=== PATIENT | female | born 1990 | race Hispanic/Latino ===

== ENCOUNTER → 2017-07-29 | Day surgery (SDC) | payer OTHER ==
[~2017-07-29] VITALS: Ht 157.5 cm; Wt 73.0 kg
--- NOTE | 2017-07-30 11:59 | Operative Report ---
Operative/Inv Procedure Report Surgery Date: 07/29/17 Name of Procedure: D&C hysteroscopy Pre-Operative Diagnosis: Fibroids Post-Operative Diagnosis: Same Estimated Blood Loss: scant Surgeon/[employer] Supervisor: Charlene Nava MD Anesthesia: moderate sedation Operative/Procedure Note Note: Patient was taken the operating room placed supine position after adequate anesthesia patient placed in dorsolithotomy position vagina from dorsal fashion examination anesthesia performed single-tooth tenaculum was placed on the Intralipid surgeons cervix was dilated 29 Hegar to left insertion hysteroscope hysteroscope was inserted under direct visualization I hysteroscope was removed sharp curettage endometrial lining was performed on sharp curettage and cervical lining was performed 2 specimen sent to pathology on sponge moved from the vagina the patient was awakened from anesthesia and transferred recovery room awake alert with counts correct
== END ==
LOC: STS 01:21
DX: D25.9 Leiomyoma of uterus, unspecified (principal)
CPT/HCPCS: 81025; 88305; J2250